=== PATIENT | male | born 1980 | race Caucasian/White ===

== ENCOUNTER 2021-10-10 10:14 | Emergency (ER) | payer BC ==
[2021-10-10] MEDS ORDERED: Aspirin 81 MG Tab.Chew PO ONE (10:26)
== END 2021-10-10 11:40 | disposition home or self-care (01) ==
LOC: FB.ED 10:14
DX: R07.89 Other chest pain (principal); E87.1 Hypo-osmolality and hyponatremia; E11.9 Type 2 diabetes mellitus without complications; F17.210 Nicotine dependence, cigarettes, uncomplicated; Z79.84 Long term (current) use of oral hypoglycemic drugs; Z79.899 Other long term (current) drug therapy
CPT/HCPCS: 36415; 71045; 80053; 84484; 85025; 85379; 85610; 85730; 93005; 99285-25; A9270-GY